=== PATIENT | female | born 1940 | race Caucasian/White ===

== ENCOUNTER 2016-11-07 15:25 | Emergency (ER) | payer MEDICARE, OTHER ==
[~2016-11-07 15:25] MED LIST: AGGRENOX PO; C5; CADUET10 MG/20 M PO; CLARIT10 PO; CO Q-10100 MG PO; FISH-EPA1000 MG PO; FLEXERIL5 MG PO; HYZAAR 100/25 T1 TAB PO; LIPITOR20 PO; MOBIC15 MG PO; NEXIUM40 PO; OMEGA 3550 MG PO; POTASSIUM PO; POTASSIUM95 MG PO; PREV15 PO; TYLENOL ARTH650 MG PO; ULTRAM50 PO; VIACTIV PO; VITAMIN B-121000 MC1 SL
[2016-11-07 17:00] LABS: WBC (NOT ORDERED) (RFLEX) 0 (0-5)
[2016-11-07 17:07] LABS: BASOPHILS 0.2 %; BASOPHILS ABSOLUTE 0.02 10/3/uL (0.0-0.16); EOSINOPHILS 0.1 %; EOSINOPHILS ABSOLUTE 0.01 10/3/uL (0.0-0.53); ER CBC TAT 0 Hrs 10 Mins; IMMATURE GRANULOCYTES 0.5 %; IMMATURE GRANULOCYTES ABSOLUTE 0.05 10/3/uL (0.0-0.11); LYMPHOCYTES 9.9 %; LYMPHOCYTES ABSOLUTE 0.99 10/3/uL (0.67-4.30); MEAN CORPUS HGB CONC 33.4 g/dL (32.0-36.0); MEAN CORPUSCULAR HEMOGLOB 29.9 pg (26.0-34.0); MEAN CORPUSCULAR VOLUME 89.4 fL (80-100); MEAN PLATELET VOLUME 9.7 fL (9.2-13.0); MONOCYTES 3.3 %; MONOCYTES ABSOLUTE 0.33 10/3/uL (0.21-1.20); NEUTROPHILS ABSOLUTE 8.63 10/3/uL (2.02-8.40); PLATELET COUNT 212 10/3/uL (150-400); RBC DISTRIBUTION WIDTH 13.8 % (12.0-16.0)
[2016-11-07 17:10] LABS: HEMOGLOBIN 12.7 g/dL (12.0-16.0); MANUAL DIFF NO %; RED CELL COUNT 4.25 10/6/uL (4.0-5.6)
[2016-11-07 17:14] LABS: ASCORBIC ACID (UR NOT ORDER) NEG (NEG); BILIRUBIN, URINE NEGATIVE (NEG); KETONE, URINE TRACE MG/DL (NEG); LEUKOCYTE ESTERASE(NOT OR NEG (NEG); NITRITE (URINE) NEG (NEG)
[2016-11-07 17:16] LABS: INTERNATIONAL NORMAL RATI 1.1 UNITS (-); PARTIAL THROMBO TIME 25.4 SEC (22.5-37.2)
[2016-11-07 17:18] LABS: PROTIME (NOT ORD) 13.9 SEC (12.0-14.5)
[2016-11-07 17:24] LABS: BUN (BLOOD UREA NITROGEN) 19 MG/DL (6-23); CALCIUM, SERUM 9.3 MG/DL (8.5-10.4); CHEST PAIN PROFILE TAT 0 Hrs 27 Mins; CHLORIDE, SERUM 106 MMOL/L (96-112); CO2 (CARBON DIOXIDE) 27 MMOL/L (24-34); CREATININE 1.24 MG/DL (0.55-1.02); GFR AFRICAN AMERICAN 49 ML/MIN (>=60); GFR NON AFRICAN AMERICAN 42 ML/MIN (>=60); GLUCOSE, SERUM 147 MG/DL (60-99); POTASSIUM, SERUM 3.8 MMOL/L (3.5-5.3); SODIUM, SERUM 140 MMOL/L (135-148); TROPONIN I 0.02 NG/ML (<0.05)
[2016-11-07 17:25] LABS: ALBUMIN 4.4 G/DL (3.5-5.0); DIRECT BILIRUBIN 0.1 MG/DL (0.0-0.4); INDIRECT BILIRUBIN(NOT ORDER) 0.5 MG/DL (0.1-0.9); TOTAL BILIRUBIN 0.6 MG/DL (0-1.2); TOTAL PROTEIN 8.5 G/DL (6.0-8.5)
[2016-11-07 17:26] LABS: LACTATE 1.5 MMOL/L (0.3-2.4)
== END 2016-11-07 18:50 | disposition home or self-care (01) ==
LOC: ER 15:25
PROVIDERS: Hospitalist
DX: I10 Essential (primary) hypertension (principal); R53.81 Other malaise; F03.90 Unspecified dementia, unspecified severity, without behavioral disturbance, psychotic disturbance, mood disturbance, and anxiety; K21.9 Gastro-esophageal reflux disease without esophagitis; Z86.73 Personal history of transient ischemic attack (TIA), and cerebral infarction without residual deficits; Z88.0 Allergy status to penicillin; Z88.8 Allergy status to other drugs, medicaments and biological substances; Z79.01 Long term (current) use of anticoagulants; Z79.899 Other long term (current) drug therapy
CPT/HCPCS: 71010; 80048; 80076; 81001; 83605; 83735; 84484; 85025; 85610; 85730; 93005; 96374; 99284